=== PATIENT | female | born 1995 | race African-American/Black ===

== ENCOUNTER → 2018-07-13 | Emergency (ER) | payer MEDICAID ==
[~2018-07-13] VITALS: Ht 172.7 cm; Wt 63.5 kg
[~2018-07-13] MED LIST: FAMOTIDINE/PF INJ 20 MG/2 ML VIAL IV ONE; IV NS 0.9% 1,000 ML BAG IV ONE; KETOROLAC TROMETHAMINE 15 MG/ML VIAL ONE; KETOROLAC TROMETHAMINE INJ 30 MG/ML VIAL IV ONE; ONDANSETRON HCL/PF 4 MG/2 ML VIAL IV ONE; ONDANSETRON HCL/PF 4 MG/2 ML VIAL ONE
--- NOTE | 2018-07-13 21:15 | NUR ---
BIB AMBULANCE W/ C/O ABD PAIN AND +N/V X 2 DAYS. CURRENTLY ON HER MENSTRUAL PERIOD. WAS DIAGNOSED W/ GAL BLADDER STONE 2 YRS AGO. VSS . WILL CONT TO MONITOR ,
[2018-07-13 22:17] LABS: ALBUMIN 3.8 g/dL (3.4-5.0); BILIRUBIN,DIRECT 0.1 mg/dL (0.0-0.2); BILIRUBIN,TOTAL 0.4 mg/dL (0.2-1.0); CREATININE 0.9 mg/dL (0.6-1.3); POTASSIUM 3.8 mmol/L (3.5-5.1); TOTAL PROTEIN, SERUM 7.7 g/dL (6.4-8.2)
[2018-07-13 23:26] LABS: BASOPHILS % (AUTO) 0.1 % (0.0-2.0); EOSINOPHILS % (AUTO) 0.6 % (0.0-6.0); HEMATOCRIT 38 % (33-45); HEMOGLOBIN 12.5 g/dL (11.5-14.8); LYMPHOCYTES # (AUTO) 2.1 /CMM (0.8-4.8); LYMPHOCYTES % (AUTO) 12.5 % (20.0-44.0); MEAN CORPUSCULAR HGB CONC 33 g/dl (31.0-36.0); MEAN CORPUSCULAR VOLUME 96 fL (82-100); MONOCYTES # (AUTO) 0.8 /CMM (0.1-1.30); NEUTROPHILS # (AUTO) 13.5 /CMM (1.8-8.9); NEUTROPHILS % (AUTO) 81.8 % (43.0-81.0); PLATELET COUNT (AUTO) 367 /CMM (150-450); RED BLOOD CELL COUNT(AUTO) 3.91 MIL/uL (4.0-5.2); WHITE BLOOD COUNT (AUTO) 16.5 K/uL (4.3-11.0)
[2018-07-14 00:42] VITALS: BP 101/54
--- NOTE | 2018-07-14 00:48 | NUR ---
SLEEPING , AROUSESE EASILY. ON CONT MONITORING. VSS, NO C/O PAIN OR DISCOMFORT AT THIS TIME
--- NOTE | 2018-07-14 01:06 | NUR ---
PT TO BE D/C'D HOME . RESTING IN BED COMFORTABLY. SNACKS PROVIDED. PT WILL CALL THE FAMILY TO PICK HER UP.
--- NOTE | 2018-07-14 02:40 | NUR ---
Patient discharged to home in stable condition. Written and verbal after care instructions given. Patient verbalizes understanding of instruction. pt was picked up by her friend.
== END | disposition home or self-care (01) ==
LOC: ER 21:09
DX: K80.20 Calculus of gallbladder without cholecystitis without obstruction (principal)
CPT/HCPCS: 36415; 76705; 80048; 80076; 83690; 85025; 96361; 96374; 96375; 99284; J1885; J2405; J3490; J7030